=== PATIENT | male | born 1965 | race Caucasian/White ===

== ENCOUNTER 2023-10-10 21:42 | Emergency (ER) | payer BC ==
[~2023-10-10] VITALS: Ht 188 cm; Wt 70.0 kg
[~2023-10-10 21:42] MED LIST: AMIO100T4 PO; APIX5TAB MT; DIGO-34 PO; DILT120C88 MT; FLUC100T PO; LEVO750T68 MT
[2023-10-10 22:05] VITALS: TEMP 98.4; O2SAT 99
[2023-10-11 00:36] LABS: CLARITY URINE TURBID (CLEAR); COLOR URINE ORANGE (YELLOW); GLUCOSE URINE NEGATIVE (NEGATIVE); KETONES URINE NEGATIVE (NEGATIVE); LEUKOCYTE ESTERASE URINE 3+ (NEGATIVE); NITRITE URINE NEGATIVE (NEGATIVE); OCCULT BLOOD URINE 3+ (NEGATIVE); PROTEIN URINE 2+ (NEGATIVE); SPECIFIC GRAVITY URINE 1.006 (1.005-1.030)
[2023-10-11 00:55] VITALS: BP 118/65; PULSE 89; RESP 19
[2023-10-11 01:26] LABS: RBC URINE 50-100 /hpf (0-2); WBC URINE 25-50 /hpf (0-2)
[2023-10-11 01:27] LABS: BACTERIA URINE 1+; SQUAMOUS EPITHELIAL CELL URINE 2+ /lpf (RARE/1+); YEAST URINE 2+
== END 2023-10-11 01:01 | disposition home or self-care (01) ==
LOC: ER 21:42
DX: N39.0 Urinary tract infection, site not specified (principal); I48.91 Unspecified atrial fibrillation; I25.2 Old myocardial infarction; Z85.9 Personal history of malignant neoplasm, unspecified; Z79.899 Other long term (current) drug therapy; Z85.51 Personal history of malignant neoplasm of bladder
CPT/HCPCS: 81003; 87106; 93005; 99284